=== PATIENT | male | born 1970 | race Two or more races ===

== ENCOUNTER 2018-11-07 16:08 | Outpatient (CLI) | payer OTHER | END 2018-11-07 18:00 | disposition home or self-care (01) | LOC: LAB 16:08 | DX: E11.621 Type 2 diabetes mellitus with foot ulcer (principal); B95.61 Methicillin susceptible Staphylococcus aureus infection as the cause of diseases classified elsewhere; L02.413 Cutaneous abscess of right upper limb ==